=== PATIENT | male | born 1970 | race African-American/Black ===

== ENCOUNTER 2018-06-17 02:35 | Emergency (ER) | payer OTHER ==
[~2018-06-17] VITALS: Ht 167.6 cm; Wt 79.4 kg
[~2018-06-17 02:35] MED LIST: CEPH500 PO; CODACE30 PO; DIAZ5 PO; HYDACE5 PO; MECL25 PO; NAPR550 PO; PROM25 PO; SULTRIDS PO
== END 2018-06-17 03:20 | disposition home or self-care (01) ==
LOC: ER 02:35
DX: S61.011D Laceration without foreign body of right thumb without damage to nail, subsequent encounter (principal); W26.8XXD Contact with other sharp object(s), not elsewhere classified, subsequent encounter; F17.200 Nicotine dependence, unspecified, uncomplicated
CPT/HCPCS: 99282

== ENCOUNTER → 2018-10-18 | Outpatient (CLI) | payer SELFPAY | END | disposition home or self-care (01) | LOC: LAB SHORT 19:40 → LAB EV 19:40 | DX: L02.91 Cutaneous abscess, unspecified (principal) | CPT/HCPCS: 87070; 87075; 87077; 87147; 87186; 87205 ==

== ENCOUNTER 2019-09-30 07:57 | Emergency (ER) | payer OTHER ==
[~2019-09-30] VITALS: Ht 167.6 cm; Wt 86.2 kg
[2019-09-30] MEDS ORDERED: Lisinopril2.5 MG (08:14)
[2019-09-30 08:16] LABS: BASOPHILS ABSOLUTE AUTO 0.03 K/mm3 (0.00-0.23); BASOPHILS PERCENT AUTO 0 % (0-2); EOSINOPHILS ABSOLUTE AUTO 0.02 K/mm3 (0.00-0.68); EOSINOPHILS PERCENT AUTO 0 % (0-6); Hematocrit 46.8 % (37.0-53.0); IMMATURE GRAN ABSOLUTE AUTO 0.05 K/mm3 (0.00-0.10); IMMATURE GRAN PERCENT AUTO 1 % (0-1); LYMPHOCYTES PERCENT AUTO 19 % (21-46); MONOCYTES PERCENT AUTO 9 % (4-13); Mean Corpuscular HGB 31.1 pg (26.0-34.0); Mean Corpuscular HGB Conc 32.1 g/dL (31.5-36.5); Mean Corpuscular Volume 97 fL (80-100); Mean Platelet Volume 8.8 fL (9.1-12.4); NEUTROPHILS ABSOLUTE AUTO 5.85 K/mm3 (1.96-9.15); NEUTROPHILS PERCENT AUTO 71 % (41-73); Platelet Count 441 K/mm3 (150-400); RDW Coefficient Variation 12.8 % (11.7-14.2); RDW Standard Deviation 45.7 fL (35.1-46.3); Red Blood Cell Count 4.82 M/mm3 (4.30-5.90); White Blood Cell Count 8.25 K/mm3 (4.00-11.30)
[2019-09-30 08:39] LABS: Alanine Aminotransfer (ALT/SGP 30 U/L (12-78); Albumin, Blood 3.8 g/dL (3.4-5.0); Albumin/Globulin Ratio 0.9 (0.8-1.8); Alk Phos 112 U/L (50-136); Anion Gap 6 mmol/L (6-16); Aspartate Aminotrans (AST/SGOT 11 U/L (12-37); Bilirubin, Total 0.9 mg/dL (0.1-1.0); Blood Urea Nitrogen 24 mg/dL (8-24); Bun/Creatinine Ratio 18.2 (12.0-20.0); CO2, Blood 29 mmol/L (21-32); Chloride, Blood 104 mmol/L (98-108); Creatinine, Blood 1.32 mg/dL (0.60-1.20); Globulin, Blood 4.3 g/dL (2.2-4.0); Glomerular Filtration Rate >60 (60-); Glucose, Blood 141 mg/dL (70-99); Potassium, Blood 3.6 mmol/L (3.5-5.5); Sodium, Blood 139 mmol/L (136-145); Total Protein, Blood 8.1 g/dL (6.4-8.2)
[2019-09-30] MEDS ORDERED: Ranitidine HCl150 M1 PO (10:48)
[2019-09-30] MEDS ORDERED: IBUP400 PO (10:48)
[2019-09-30] MEDS ORDERED: ONDA4ODT SL (10:48)
== END 2019-09-30 11:27 | disposition home or self-care (01) ==
LOC: ER 07:57
PROVIDERS: Emergency Medicine
DX: R10.13 Epigastric pain (principal); R11.2 Nausea with vomiting, unspecified; I10 Essential (primary) hypertension; F17.210 Nicotine dependence, cigarettes, uncomplicated; Z79.899 Other long term (current) drug therapy
CPT/HCPCS: 80053; 83690; 84484; 85025; 93005; 93010; 96361; 96374; 96375; 99284-25; C9113; J1200; J2765; J7120

== ENCOUNTER 2020-09-13 17:43 | Emergency (ER) | payer OTHER ==
[~2020-09-13] VITALS: Ht 170.2 cm; Wt 86.3 kg
[~2020-09-13 17:43] MED LIST changes: +IBUP400 PO; +Lisinopril2.5 MG; +ONDA4ODT SL; +Ranitidine HCl150 M1 PO
[2020-09-13 18:27] LABS: BASOPHILS ABSOLUTE AUTO 0.02 K/mm3 (0.00-0.23); BASOPHILS PERCENT AUTO 0 % (0-2); EOSINOPHILS ABSOLUTE AUTO 0.04 K/mm3 (0.00-0.68); EOSINOPHILS PERCENT AUTO 1 % (0-6); Hematocrit 42.1 % (37.0-53.0); Hemoglobin 13.7 g/dL (13.5-17.5); IMMATURE GRAN ABSOLUTE AUTO 0.03 K/mm3 (0.00-0.10); IMMATURE GRAN PERCENT AUTO 0 % (0-1); LYMPHOCYTES ABSOLUTE AUTO 1.88 K/mm3 (0.84-5.20); LYMPHOCYTES PERCENT AUTO 25 % (21-46); MONOCYTES ABSOLUTE AUTO 0.57 K/mm3 (0.16-1.47); MONOCYTES PERCENT AUTO 8 % (4-13); Mean Corpuscular HGB 30.7 pg (26.0-34.0); Mean Corpuscular HGB Conc 32.5 g/dL (31.5-36.5); Mean Corpuscular Volume 94 fL (80-100); Mean Platelet Volume 9.2 fL (9.1-12.4); NEUTROPHILS ABSOLUTE AUTO 4.94 K/mm3 (1.96-9.15); NEUTROPHILS PERCENT AUTO 66 % (41-73); Platelet Count 302 K/mm3 (150-400); RDW Coefficient Variation 12.3 % (11.7-14.2); Red Blood Cell Count 4.46 M/mm3 (4.30-5.90); White Blood Cell Count 7.48 K/mm3 (4.00-11.30)
[2020-09-13 18:54] LABS: Alanine Aminotransfer (ALT/SGP 34 U/L (12-78); Albumin, Blood 3.5 g/dL (3.4-5.0); Albumin/Globulin Ratio 0.9 (0.8-1.8); Alk Phos 92 U/L (50-136); Anion Gap 6 mmol/L (6-16); Aspartate Aminotrans (AST/SGOT 22 U/L (12-37); Bilirubin, Total 0.7 mg/dL (0.1-1.0); Blood Urea Nitrogen 16 mg/dL (8-24); CO2, Blood 27 mmol/L (21-32); Chloride, Blood 108 mmol/L (98-108); Creatinine, Blood 1.14 mg/dL (0.60-1.20); Globulin, Blood 3.8 g/dL (2.2-4.0); Glomerular Filtration Rate >60 (60-); Glucose, Blood 115 mg/dL (70-99); Potassium, Blood 3.6 mmol/L (3.5-5.5); Sodium, Blood 141 mmol/L (136-145); Total Protein, Blood 7.3 g/dL (6.4-8.2)
[2020-09-13] MEDS ORDERED: MOTION RELIEF25 MG PO (21:10)
== END 2020-09-13 21:31 | disposition home or self-care (01) ==
LOC: ER 17:43
PROVIDERS: Physician Assistant
DX: R42 Dizziness and giddiness (principal); I10 Essential (primary) hypertension; F17.210 Nicotine dependence, cigarettes, uncomplicated
CPT/HCPCS: 36415; 71046; 80053; 85025; 93005; 93010; 99284-25; A9270

== ENCOUNTER 2023-04-11 13:32 | Inpatient (IN) | payer OTHER ==
[~2023-04-11] VITALS: Ht 167.6 cm; Wt 84.0 kg
[~2023-04-11 13:32] MED LIST changes: +ALPR.5 PO; +MOTION RELIEF25 MG PO
[2023-04-11 14:12] LABS: BASOPHILS ABSOLUTE AUTO 0.02 K/mm3 (0.00-0.23); BASOPHILS PERCENT AUTO 0 % (0-2); EOSINOPHILS ABSOLUTE AUTO 0.05 K/mm3 (0.00-0.68); EOSINOPHILS PERCENT AUTO 1 % (0-6); Hematocrit 43.9 % (37.0-53.0); Hemoglobin 14.4 g/dL (13.5-17.5); IMMATURE GRAN ABSOLUTE AUTO 0.02 K/mm3 (0.00-0.10); IMMATURE GRAN PERCENT AUTO 0 % (0-1); LYMPHOCYTES ABSOLUTE AUTO 2.07 K/mm3 (0.84-5.20); LYMPHOCYTES PERCENT AUTO 28 % (21-46); MONOCYTES ABSOLUTE AUTO 0.65 K/mm3 (0.16-1.47); MONOCYTES PERCENT AUTO 9 % (4-13); Mean Corpuscular HGB 31.5 pg (26.0-34.0); Mean Corpuscular HGB Conc 32.8 g/dL (31.5-36.5); Mean Corpuscular Volume 96 fL (80-100); Mean Platelet Volume 9.1 fL (9.1-12.4); NEUTROPHILS ABSOLUTE AUTO 4.68 K/mm3 (1.96-9.15); NEUTROPHILS PERCENT AUTO 62 % (41-73); Platelet Count 329 K/mm3 (150-400); RDW Coefficient Variation 12.7 % (11.7-14.2); RDW Standard Deviation 44.9 fL (35.1-46.3); Red Blood Cell Count 4.57 M/mm3 (4.30-5.90); White Blood Cell Count 7.49 K/mm3 (4.00-11.30)
[2023-04-11 14:33] LABS: Albumin, Blood 3.6 g/dL (3.4-5.0); Bilirubin, Total 0.7 mg/dL (0.1-1.0); Bun/Creatinine Ratio 17.5 (12.0-20.0); Creatinine, Blood 0.92 mg/dL (0.60-1.20); Globulin, Blood 3.7 g/dL (2.2-4.0); Potassium, Blood 3.4 mmol/L (3.5-5.5); Total Protein, Blood 7.3 g/dL (6.4-8.2)
[2023-04-11 16:36] LABS: Anti-Xa UFH, PHA Monitoring <0.10 IU/mL; International Normalized Ratio 1.01; Prothrombin Time Results 10.6 Sec (9.7-11.5)
[2023-04-11 18:31] VITALS: BP 136/98
[2023-04-11 20:24] LABS: U Amphetamine Screen DETECTED; U Cannabinoids Screen DETECTED; U Methamphetamine Screen DETECTED
[2023-04-11 20:25] LABS: U Barbituate Screen Not Detected; U Benzodiazapine Screen Not Detected; U Buprenorphine Screen Not Detected; U Cocaine Screen Not Detected; U Methadone Screen Not Detected; U Opiates Screen Not Detected; U Oxycodone Screen Not Detected; U Phencyclidine Screen Not Detected
[2023-04-11 20:49] VITALS: BP 132/92
[2023-04-12] VITALS (12 sets, daily range): BP systolic 135–166; BP diastolic 89–120
--- NOTE | 2023-04-12 04:36 | NUR ---
SHIFT SUMMARY THIS RN ASSUMED CARE OF PATIENT AT 1900. PT A&O X4. ABLE TO MAKE NEEDS KNOWN. DENIED CHEST PAIN/PRESSURE T/O THIS SHIFT. SR WITH HR 70-90'S. ON RA WITH SPO2 >92%. DENIES DYSPNEA WITH EXERTION. AFEBRILE. BP STABLE, SBP 130-140'S. PT AMBULATING WITH SBA TO BATHROOM WITH ASSISTANCE NEEDED WITH IV POLE ONLY. COOPERATIVE WITH CARE. HEP GTT INFUSING PER EMAR. PT HAS BEEN NPO SINCE MIDNIGHT. BED IN LOWEST POSITION AND CALL LIGHT WITHIN REACH. THIS RN WILL REPORT TO ONCOMING DAYSHIFT RN.
[2023-04-12 05:11] LABS: BASOPHILS ABSOLUTE AUTO 0.04 K/mm3 (0.00-0.23); BASOPHILS PERCENT AUTO 1 % (0-2); EOSINOPHILS ABSOLUTE AUTO 0.06 K/mm3 (0.00-0.68); EOSINOPHILS PERCENT AUTO 1 % (0-6); Hematocrit 43.6 % (37.0-53.0); Hemoglobin 14.2 g/dL (13.5-17.5); IMMATURE GRAN ABSOLUTE AUTO 0.02 K/mm3 (0.00-0.10); IMMATURE GRAN PERCENT AUTO 0 % (0-1); LYMPHOCYTES ABSOLUTE AUTO 2.65 K/mm3 (0.84-5.20); LYMPHOCYTES PERCENT AUTO 38 % (21-46); MONOCYTES ABSOLUTE AUTO 0.59 K/mm3 (0.16-1.47); MONOCYTES PERCENT AUTO 9 % (4-13); Mean Corpuscular HGB 31.1 pg (26.0-34.0); Mean Corpuscular HGB Conc 32.6 g/dL (31.5-36.5); Mean Corpuscular Volume 95 fL (80-100); Mean Platelet Volume 9.2 fL (9.1-12.4); NEUTROPHILS ABSOLUTE AUTO 3.57 K/mm3 (1.96-9.15); NEUTROPHILS PERCENT AUTO 52 % (41-73); Platelet Count 292 K/mm3 (150-400); RDW Coefficient Variation 12.6 % (11.7-14.2); RDW Standard Deviation 44.3 fL (35.1-46.3); Red Blood Cell Count 4.57 M/mm3 (4.30-5.90); White Blood Cell Count 6.93 K/mm3 (4.00-11.30)
[2023-04-12 05:41] LABS: Anion Gap 6 mmol/L (6-16); Blood Urea Nitrogen 14 mg/dL (8-24); Bun/Creatinine Ratio 17.5 (12.0-20.0); CHOL/HDL RATIO 3.8; CO2, Blood 23 mmol/L (21-32); Calcium, Blood 8.9 mg/dL (8.5-10.1); Chloride, Blood 111 mmol/L (98-108); Cholesterol 182 mg/dL (50-200); Glomerular Filtration Rate 105 (60-); Glucose, Blood 113 mg/dL (70-99); HDL Cholesterol 48 mg/dL (>39); LDL/HDL RATIO 2.4; Low Density Lipoprotein Chol 117 mg/dL (0-110); Potassium, Blood 3.8 mmol/L (3.5-5.5); Sodium, Blood 140 mmol/L (136-145); Triglycerides 83 mg/dL (30-160); Very Low Density Lipoprot Chol 16 mg/dL (6-32)
--- NOTE | 2023-04-12 18:07 | NUR ---
ASSUMED CARE OF PT AT 0700 THIS AM. PT TO PUMPING SUPERVISOR APROX 0730 AND RETURN APROX 0840. RECEIVED ONE STENT TO THE CIRC, R RADIAL ACCESS WITH TR BAND IN PLACE UPON ARRIVAL TO ROOM. HEPARIN GTT DISCONTINUED POST PROCEDURE. PER REPORT PT TOLERATED WELL. PT IS A&OX4, DENIES PAIN OR SOB ON ARRIVAL. TR BAND RECOVERED PER MD ORDERS WITHOUT ANY COMPLICATIONS NOTED. PT INSTRUCTED ON R WIRST LIMITED ROM, ARM BOARD IN PLACE. PT VERBALIZES UNDERSTANDING. PT HAS CONTINUED TO DENY CHEST PAIN OR PRESSURE T/O THE DAY. TR BAND SITE IS FULLY RECOVERED WITHOUT ANY BLEEDING, SWELLING OR HEMATOMA NOTED. PT HAS BEEN COOPERATIVE, ABLE TO MAKE NEEDS KNOWN, USES CALL LIGHT APPROPRIATELY. BED IN LOWEST POSITION. PT IS INDEPENDENT IN ROOM. CALL LIGHT IN REACH. WILL CONTINUE TO MONITOR/TREAT AND GIVE REPORT TO NOC SHIFT RN AT END OF SHIFT.
[2023-04-13 03:58] VITALS: BP 144/107
[2023-04-13 04:32] LABS: Calcium, Blood 8.6 mg/dL (8.5-10.1); Creatinine, Blood 0.94 mg/dL (0.60-1.20); Magnesium, Blood 2.3 mg/dL (1.6-2.4); Potassium, Blood 3.8 mmol/L (3.5-5.5)
--- NOTE | 2023-04-13 04:52 | NUR ---
SHIFT SUMMARY NO ACUTE CHANGES OVERNIGHT. PT DENIES CHEST PAIN/PRESSURE. RT RADIAL ANGIO SITE DRESSING C/D/I. NO BLEEDING, DISCOLORATION, HEMATOMA NOTED. ARMBOARD IN PLACE. BP STABLE. SR WITH HR 80'S. ON RA WITH SPO2 >92%. AFEBRILE. INDEPENDENT WITH ADL'S. NEURO INTACT. BED IN LOWEST POSITION AND CALL LIGHT WITHIN REACH. THIS RN WILL REPORT TO ONCOMING DAYSHIFT RN.
[2023-04-13 07:25] VITALS: BP 152/97
--- NOTE | 2023-04-13 07:25 | NUR ---
PT A/O. DENIES ANY CP OR EVENTS OVERNIGHT. HAS REMAINED IN NSR T/O NIGHT RIGHT RADIAL SITE WNL WITH ARMBOARD IN PLACE. PROBABLE DC HOME TODAY. PT DID STATE THAT HE IS CURRENLTY HOMELESS BUT STAYING AT THE [place] THAT [place] HAVE E[place]RICITY. WILL INVOLVE CARE MANAGEMENT WITH DISCHARGE PLAN.
[2023-04-13] MEDS ORDERED: ASPI81CH PO ×2 (09:31→09:38)
[2023-04-13] MEDS ORDERED: ATOR80 PO (09:38)
[2023-04-13] MEDS ORDERED: Carvedilol12.5 MG PO (09:39)
[2023-04-13] MEDS ORDERED: NITR.4SL SL (09:39)
[2023-04-13] MEDS ORDERED: CLOP75 PO (09:39)
--- NOTE | 2023-04-13 10:57 | NUR ---
DC ORDERS HAVE BEEN WRITTEN BY DR. MAYO. DR. SUH HAS CLEARED PATIENT FOR DISCHARGE. CARE MANAGEMENT STATED PATIENT ABLE TO DC TO [facility]. PATIENT WANTED A HOTEL STAY FOR A COUPLE NIGHTS BUT UNABLE TO APPROVE THIS REQUEST. RX SENT TO PHARMACY OF CHOICE. CARDIOLOGY OFFICE STATES THEY WILL CALL PATIENT TO SCHEDULE F/U APPT. PT DOES NOT HAVE PRIMARY CARE, HIS INSURANCE PROVIDER WAS CONTACTED PER CM AND THEY WILL CALL TO SCHEDULE. A LIST OF PROVIDERS ALSO GIVEN TO PATIENT.
--- NOTE | 2023-04-13 11:13 | NUR ---
DC INSTRUCTIONS ALL INSTRUCTIONS REVIEWED WITH PATIENT. ANSWERED ALL QUESTIONS, NO OTHER CONCERNS AT THIS TIME. IV X2 DC'D, TELE DC'D, PATIENT WAITING FOR RIDE.
== END 2023-04-13 11:17 | disposition home or self-care (01) | DRG 322 ==
LOC: ER 13:32 → PCU 16:31
PROVIDERS: Emergency Medicine; Student in an Organized Health Care Education/Training Program; ADMIT Family Medicine
PROC: 027034Z Dilation of Coronary Artery, One Artery with Drug-eluting Intraluminal Device, Percutaneous Approach (ICD-10-PCS; principal; 2023-04-12)
PROC: B2111ZZ Fluoroscopy of Multiple Coronary Arteries using Low Osmolar Contrast (ICD-10-PCS; 2023-04-12)
DX: I21.4 Non-ST elevation (NSTEMI) myocardial infarction (principal); I50.30 Unspecified diastolic (congestive) heart failure; I25.10 Atherosclerotic heart disease of native coronary artery without angina pectoris; F17.210 Nicotine dependence, cigarettes, uncomplicated; E87.6 Hypokalemia; I11.0 Hypertensive heart disease with heart failure; Z71.6 Tobacco abuse counseling
CPT/HCPCS: 36415; 71046; 76937; 80048; 80053; 80061; 83735; 84484; 85025; 85347; 85520; 85610; 85730; 93005; 93010; 93306; 93454; 96365; 96375; 96376; 99152; 99153; 99285-25; A9270; C1725; C1769; C1874; C1887; C1894; C9600; J0360; J1644; J2250; J3010; J7030; J7050; Q9967

== ENCOUNTER 2023-04-16 00:44 | Emergency (ER) | payer OTHER ==
[~2023-04-16] VITALS: Ht 175.3 cm; Wt 77.1 kg
[~2023-04-16 00:44] MED LIST changes: +ASPI81CH PO; +ATOR80 PO; +CLOP75 PO; +Carvedilol12.5 MG PO; +NITR.4SL SL
[2023-04-16 01:03] VITALS: BP 155/94
== END 2023-04-16 01:48 | disposition home or self-care (01) ==
LOC: ER 00:44
DX: F15.20 Other stimulant dependence, uncomplicated (principal); F12.20 Cannabis dependence, uncomplicated; F17.210 Nicotine dependence, cigarettes, uncomplicated; I25.2 Old myocardial infarction; Z59.00 Homelessness unspecified; Z79.82 Long term (current) use of aspirin; Z79.02 Long term (current) use of antithrombotics/antiplatelets; Z79.899 Other long term (current) drug therapy
CPT/HCPCS: 99282

== ENCOUNTER 2024-08-11 16:25 | Emergency (ER) | payer OTHER ==
[~2024-08-11] VITALS: Ht 167.6 cm; Wt 81.7 kg
[2024-08-11 16:28] VITALS: BP 159/101
[2024-08-11 16:55] LABS: BASOPHILS ABSOLUTE AUTO 0.03 K/mm3 (0.00-0.23); BASOPHILS PERCENT AUTO 0 % (0-2); EOSINOPHILS ABSOLUTE AUTO 0.04 K/mm3 (0.00-0.68); EOSINOPHILS PERCENT AUTO 0 % (0-6); Hematocrit 44.2 % (37.0-53.0); Hemoglobin 14.5 g/dL (13.5-17.5); IMMATURE GRAN ABSOLUTE AUTO 0.05 K/mm3 (0.00-0.10); IMMATURE GRAN PERCENT AUTO 0 % (0-1); LYMPHOCYTES ABSOLUTE AUTO 0.72 K/mm3 (0.84-5.20); LYMPHOCYTES PERCENT AUTO 6 % (21-46); MONOCYTES ABSOLUTE AUTO 0.85 K/mm3 (0.16-1.47); MONOCYTES PERCENT AUTO 7 % (4-13); Mean Corpuscular HGB 31.5 pg (26.0-34.0); Mean Corpuscular HGB Conc 32.8 g/dL (31.5-36.5); Mean Corpuscular Volume 96 fL (80-100); Mean Platelet Volume 8.6 fL (9.1-12.4); NEUTROPHILS PERCENT AUTO 87 % (41-73); Platelet Count 343 K/mm3 (150-400); RDW Coefficient Variation 12.9 % (11.7-14.2); RDW Standard Deviation 45.7 fL (35.1-46.3); Red Blood Cell Count 4.61 M/mm3 (4.30-5.90); White Blood Cell Count 12.49 K/mm3 (4.00-11.30)
[2024-08-11 17:41] LABS: Albumin, Blood 3.6 g/dL (3.4-5.0); Albumin/Globulin Ratio 0.9 (0.8-1.8); Bilirubin, Total 1.1 mg/dL (0.1-1.0); Bun/Creatinine Ratio 25.2 (12.0-20.0); Calcium, Blood 9.3 mg/dL (8.5-10.1); Creatinine, Blood 0.76 mg/dL (0.60-1.20); Potassium, Blood 4.3 mmol/L (3.5-5.5); Total Protein, Blood 7.6 g/dL (6.4-8.2)
== END 2024-08-11 18:49 | disposition home or self-care (01) ==
LOC: ER 16:25
PROVIDERS: Emergency Medicine
DX: R11.2 Nausea with vomiting, unspecified (principal); I25.2 Old myocardial infarction; F17.210 Nicotine dependence, cigarettes, uncomplicated; Z79.82 Long term (current) use of aspirin; Z79.899 Other long term (current) drug therapy
CPT/HCPCS: 71046; 80053; 84484; 85025; 93005; 93010; 99284-25

== ENCOUNTER 2025-02-28 20:26 | Inpatient (IN) | payer OTHER ==
[~2025-02-28] VITALS: Ht 167.6 cm; Wt 77.0 kg
[~2025-02-28 20:26] MED LIST changes: +CARV25 PO; -Carvedilol12.5 MG PO; +Enoxaparin 40 MG/0.4 ML SYR SC SCH; +Heparin Sodium,Porcine 5,000 UNIT/0.5 ML SDV SC ONE
[2025-02-28] MEDS ORDERED: Heparin Sodium 5000 Units/ML 1ML MDV IV ONE (20:30)
[2025-02-28] MEDS ORDERED: Morphine Sulfate 4 MG/1 ML Injection IV PRN (20:35)
[2025-02-28 20:37] LABS: Calcium, Ionized (POC) 1.15 mmol/L (1.10-1.46); Chloride (POC) 97 mmol/L (98-108); Creatinine (POC) 1.4 mg/dL (0.8-1.3); Glucose (ISTAT POC) 202 mg/dL (70-99); Hematocrit (POC) 45.0 % (41.0-53.0); Hemoglobin (POC) 15.3 g/dL (13.5-17.5); Potassium (POC) 3.0 mmol/L (3.5-5.5); Sodium (POC) 139 mmol/L (135-148); Total CO2 (POC) 28 mmol/L (21-32)
[2025-02-28 20:42] LABS: BASOPHILS ABSOLUTE AUTO 0.03 K/mm3 (0.00-0.23); BASOPHILS PERCENT AUTO 0 % (0-2); EOSINOPHILS ABSOLUTE AUTO 0.03 K/mm3 (0.00-0.68); EOSINOPHILS PERCENT AUTO 0 % (0-6); Hematocrit 42.5 % (37.0-53.0); Hemoglobin 13.8 g/dL (13.5-17.5); IMMATURE GRAN ABSOLUTE AUTO 0.02 K/mm3 (0.00-0.10); IMMATURE GRAN PERCENT AUTO 0 % (0-1); LYMPHOCYTES ABSOLUTE AUTO 1.88 K/mm3 (0.84-5.20); LYMPHOCYTES PERCENT AUTO 28 % (21-46); MONOCYTES ABSOLUTE AUTO 0.55 K/mm3 (0.16-1.47); MONOCYTES PERCENT AUTO 8 % (4-13); Mean Corpuscular HGB Conc 32.5 g/dL (31.5-36.5); Mean Corpuscular Volume 94 fL (80-100); NEUTROPHILS ABSOLUTE AUTO 4.24 K/mm3 (1.96-9.15); NEUTROPHILS PERCENT AUTO 63 % (41-73); NRBC ABSOLUTE 0.00 K/mm3 (0.00-0.02); NRBC Auto 0.0 /100 WBC (0.0-0.2); Platelet Count 298 K/mm3 (150-400); RDW Coefficient Variation 13.0 % (11.7-14.2); RDW Standard Deviation 44.9 fL (35.1-46.3)
[2025-02-28] MEDS ORDERED: NiCARdipine HCL 1,000 MCG/5 ML SYR ONE (20:48)
[2025-02-28] MEDS ORDERED: Heparin Sodium 1000 Units/ML 10ML MDV ONE (20:48)
[2025-02-28] MEDS ORDERED: NS 1,000 ML IV ONE ×2 (20:48→20:53)
[2025-02-28] MEDS ORDERED: NS 250 ML IV ONE (20:48)
[2025-02-28] MEDS ORDERED: Midazolam HCl 1MG / ML 2ML Vial ONE ×2 (20:53→21:25)
[2025-02-28] MEDS ORDERED: FentaNYL Citrate 50 MCG/ML 2 ML Injection ONE ×2 (20:53→21:25)
[2025-02-28 21:00] LABS: Prothrombin Time Results 11.2 Sec (9.7-11.5)
[2025-02-28 21:05] LABS: Alanine Aminotransfer (ALT/SGP 21 U/L (12-78); Albumin, Blood 3.8 g/dL (3.4-5.0); Albumin/Globulin Ratio 1.0 (0.8-1.8); Anion Gap 11 mmol/L (3-11); Aspartate Aminotrans (AST/SGOT 17 U/L (12-37); Bilirubin, Total 1.0 mg/dL (0.1-1.0); Blood Urea Nitrogen 14 mg/dL (8-24); CHOL/HDL RATIO 3.9; CO2, Blood 29 mmol/L (21-32); Calcium, Blood 9.3 mg/dL (8.5-10.1); Chloride, Blood 99 mmol/L (98-108); Cholesterol 201 mg/dL (50-200); Creatinine, Blood 1.17 mg/dL (0.60-1.20); Globulin, Blood 3.7 g/dL (2.2-4.0); Glucose, Blood 212 mg/dL (70-99); HDL Cholesterol 52 mg/dL (>39); LDL/HDL RATIO 2.6; Low Density Lipoprotein Chol 137 mg/dL (0-110); Magnesium, Blood 2.2 mg/dL (1.6-2.4); Potassium, Blood 2.9 mmol/L (3.5-5.5); Sodium, Blood 136 mmol/L (136-145); Total Protein, Blood 7.5 g/dL (6.4-8.2); Triglycerides 58 mg/dL (30-160); Very Low Density Lipoprot Chol 11 mg/dL (6-32)
[2025-02-28] MEDS ORDERED: DiphenhydrAMINE HCl 50 MG/ML 1ML Vial ONE (21:19)
[2025-02-28] MEDS ORDERED: Labetalol HCL 5 MG/ML 4ML Injection (Single Dose) ONE (21:26)
[2025-02-28] MEDS ORDERED: Phenylephrine HCl 100 MCG/ML-NS 10MLSYR (1MG/10ML) ONE (21:43)
[2025-02-28 23:00] VITALS: BP 162/134; BP 185/143
[2025-02-28] MEDS ORDERED: NS 1,000 ML IV SCH (23:00)
--- NOTE | 2025-02-28 23:00 | NUR ---
ADMISSION NOTE AT 2237 PT ARRIVED FROM [facility] ON OUR ICU BED, SEDATED FROM STENTING PROCEDURE DURING WHICH HE RECEIVED 2MG OF VERSED, 100MCG OF FENTANYL AND 25MG OF DIPHENHYDRAMINE. PT IS AFEBRILE AND IN SINUS RHYTHM. BP IS ELEVATED AT 158 SBP. WILL MONITOR. PT ON RA WITH SATURATIONS > 90%. PT DESATURATES OCCASIONALLY INTO MID TO HIGH 80'S WITH APPARENT SLEEP APNEA. WILL MONITOR AND INTERVENE IF NEEDED. LUNGS CLEAR. RRR. NORMOACTIVE BOWEL SOUNDS. PT HELPED WITH URINAL DURING ASSESSMENT. 300ML OUTPUT. TRENDING TROPONINS AND ECG AND ECHO SCHEDULED FOR MORNING. RIGHT GROIN ACCESS SITE IS CLOSED WITH ANGIOSEAL. AREA IS CLEAN, DRY, INTACT AND SOFT. RIGHT RADIAL ACCESS SITE WITH TR BAND IN PLACE WITH 12ML OF AIR INFLATION. AREA IS C/D/I/SOFT. WILL REMOVE AIR SLOWLY. WILL INIATE PLAN OF CARE, INCLUDING LOVENOX INJECTION, NS AT 200ML/HR X 2 BAGS AND 40MEQ OF KCL FOR A K OF 3.0 ON ARRIVAL TO ED.
[2025-02-28 23:15] VITALS: BP 165/126
[2025-02-28 23:30] VITALS: BP 162/134
[2025-02-28 23:45] VITALS: BP 176/116
[2025-02-28] MEDS ORDERED: FLU VACC TS2025-26(6MOS UP)/PF 45 MCG/0.5 ML SYRINGE IM SCH (23:45)
[2025-02-28] MEDS ORDERED: Ondansetron HCl 2 MG / ML 2ML Vial IV PRN (23:45)
[2025-03-01] VITALS (43 sets, daily range): BP systolic 106–169; BP diastolic 79–136
[2025-03-01] MEDS ORDERED: Enoxaparin 40 MG/0.4 ML SYR SC SCH (00:05)
--- NOTE | 2025-03-01 03:04 | NUR ---
TR BAND INFO TR BAND APPLIED AT 2232 IN SUPERINTENDENT METERS. WHAT FOLLOWS IS THE TIMING OF REMOVAL OF THE 12ML OF AIR WITHIN 2340 2ML 0007 2ML 0020 2ML 0120 3ML 0145 3ML AT ALL STAGES, AREA C/D/I/SOFT TR BAND REMOVED AT 0230 AND TEGADERM APPLIED
[2025-03-01] MEDS ORDERED: HydrALAZINE HCl 20 MG / ML 1ML Vial IV PRN (03:30)
[2025-03-01 03:34] LABS: BASOPHILS ABSOLUTE AUTO 0.01 K/mm3 (0.00-0.23); BASOPHILS PERCENT AUTO 0 % (0-2); EOSINOPHILS ABSOLUTE AUTO 0.01 K/mm3 (0.00-0.68); EOSINOPHILS PERCENT AUTO 0 % (0-6); Hematocrit 39.0 % (37.0-53.0); Hemoglobin 12.7 g/dL (13.5-17.5); IMMATURE GRAN ABSOLUTE AUTO 0.02 K/mm3 (0.00-0.10); IMMATURE GRAN PERCENT AUTO 0 % (0-1); LYMPHOCYTES ABSOLUTE AUTO 1.37 K/mm3 (0.84-5.20); LYMPHOCYTES PERCENT AUTO 19 % (21-46); MONOCYTES ABSOLUTE AUTO 0.55 K/mm3 (0.16-1.47); MONOCYTES PERCENT AUTO 7 % (4-13); Mean Corpuscular HGB Conc 32.6 g/dL (31.5-36.5); Mean Corpuscular Volume 94 fL (80-100); NEUTROPHILS ABSOLUTE AUTO 5.46 K/mm3 (1.96-9.15); NEUTROPHILS PERCENT AUTO 74 % (41-73); NRBC ABSOLUTE 0.00 K/mm3 (0.00-0.02); NRBC Auto 0.0 /100 WBC (0.0-0.2); Platelet Count 260 K/mm3 (150-400); RDW Coefficient Variation 13.1 % (11.7-14.2); RDW Standard Deviation 45.7 fL (35.1-46.3)
[2025-03-01 03:52] LABS: Alanine Aminotransfer (ALT/SGP 21.0 U/L (12-78); Albumin, Blood 3.1 g/dL (3.4-5.0); Albumin/Globulin Ratio 1.0 (0.8-1.8); Anion Gap 9.0 mmol/L (3-11); Aspartate Aminotrans (AST/SGOT 82.0 U/L (12-37); Bilirubin, Total 1.0 mg/dL (0.1-1.0); Blood Urea Nitrogen 12.0 mg/dL (8-24); CO2, Blood 27.0 mmol/L (21-32); Calcium, Blood 8.2 mg/dL (8.5-10.1); Chloride, Blood 104.0 mmol/L (98-108); Creatinine, Blood 0.84 mg/dL (0.60-1.20); Globulin, Blood 3.2 g/dL (2.2-4.0); Glucose, Blood 104.0 mg/dL (70-99); Potassium, Blood 3.3 mmol/L (3.5-5.5); Sodium, Blood 137.0 mmol/L (136-145); Total Protein, Blood 6.3 g/dL (6.4-8.2)
--- NOTE | 2025-03-01 06:50 | NUR ---
SHIFT SUMMARY PT LYING IN BED SLEEPING, AWAKES TO VOICE AND IS ALERT AND ORIENTED TO ALL. AFEBRILE. NO PAIN. MOVES ALL EXTEMITIES WELL. RIGHT LEG AND RIGHT HAND SENSATION, TEMPERATURE AND MOVEMENT INTACT. SINUS RHYTHM RATE OF 89 AND STABLE TO ELEVATED BP. ONE DOSE OF HYDRALAZINE GIVEN DURING SHIFT. NO CHEST PAIN/PRESSURE DURING SHIFT. PT HAS HAD 5 RUNS OF V TACH 5 TO 13 BEATS LONG. SATURATION > 92% ON RA. NO SOB NO AB PAIN, N/V. NO BM DURING SHIFT. URINE OUTPUT 1.2 L. NS INFUSING AT 200ML/HR. BEDSIDE SHIFT REPORT GIVEN TO ONCOMING RN.
--- NOTE | 2025-03-01 07:25 | NUR ---
ASSUMED CARE THIS RN ASSUMED CARE OF PATIENT AT 0700 WITH PRECEPTOR HARDIK METZ. PATIENT IS RESTING WITH HIS EYES CLOSED DURING BSSR. HE IS CURRENTLY ON RA WITH SPO2 >94%. MONITOR SHOWS NSR WITH 80-90S. SYSTOLIC BP >140, MAP >120. NS 200ML/HR RUNNING THROUGH PIV. PATIENT'S RIGHT RADIAL SITE AND GROIN IS SOFT AND NONTENDER W/O VISIBLE ECCHYMOSIS. PATIENT HAS HANDHELD URINAL IN REACH. CALL LIGHT IN REACH. BED IN LOWEST POSITION.
[2025-03-01 13:22] LABS: U Amphetamine Screen DETECTED; U Cannabinoids Screen DETECTED; U Methamphetamine Screen DETECTED
[2025-03-01 13:23] LABS: U Barbiturate Screen Not Detected; U Benzodiazapine Screen Not Detected; U Buprenorphine Screen Not Detected; U Cocaine Screen Not Detected; U Methadone Screen Not Detected; U Opiates Screen DETECTED; U Oxycodone Screen Not Detected; U Phencyclidine Screen Not Detected
[2025-03-01 15:41] LABS: Ferritin, Serum 76.0 ng/mL (26-388); Total Iron Binding Capacity 274.0 ug/dL (250-450)
--- NOTE | 2025-03-01 18:09 | NUR ---
SHIFT SUMMARY PATIENT HAS BEEN A&Ox4 THIS SHIFT. HE IS COOPERATIVE, ANSWERS QUESTIONS APPROPRIATELY AND PARTICIPATES IN ALL CARE. HIS SPO2 IS >98% ON RA. HIS SYSTOLIC BP IS >140, MONITOR SHOWS NSR WITH SLIGHT ST ELEVATION POST PCI. HE HAS NOT COMPLAINED OF CHEST PAIN OR SOB THIS SHIFT. HIS RIGHT RADIAL AND GROIN ACCESS SITES HAVE BEEN C/D/I AND FREE OF HEMATOMA, OOZING OR BLEEDING. PT WAS ABLE TO AMBULATE, SHOWER, AND USE THE TOILET INDEPENDENTLY. HE HAS EATEN ALL THREE MEALS PROVIDED AND HAS A GOOD APPETITE. SCDS IN PLACE, CALL LIGHT IN REACH. BED IN LOWEST POSITION.
--- NOTE | 2025-03-01 19:13 | NUR ---
ASSUMPTION OF CARE CARE OF PT ASSUMED FOLLOWING BEDSIDE SHIFT REPORT FROM DAY RN. PT LYING INBED IN NO APPARENT DISTRESS. AFEBRILE. NO PAIN AT THIS TIME. SINUS TACH WITH STABLE BP. RA WITH SAT 100%. NO SOB. BM TODAY. NO N/V. NO URINARY COMPLAINTS. SALINE LOCKED. RIGHT GROIN ACCESS SITE AND R RADIAL SITE ARE C/D/I/SOFT. WILL REVIEW AND CONTINUE PLAN OF CARE
[2025-03-02] VITALS (23 sets, daily range): BP systolic 127–160; BP diastolic 81–120
[2025-03-02 03:33] LABS: BASOPHILS ABSOLUTE AUTO 0.02 K/mm3 (0.00-0.23); BASOPHILS PERCENT AUTO 0 % (0-2); EOSINOPHILS ABSOLUTE AUTO 0.02 K/mm3 (0.00-0.68); EOSINOPHILS PERCENT AUTO 0 % (0-6); Hematocrit 35.5 % (37.0-53.0); Hemoglobin 11.7 g/dL (13.5-17.5); IMMATURE GRAN ABSOLUTE AUTO 0.01 K/mm3 (0.00-0.10); IMMATURE GRAN PERCENT AUTO 0 % (0-1); LYMPHOCYTES ABSOLUTE AUTO 1.29 K/mm3 (0.84-5.20); LYMPHOCYTES PERCENT AUTO 22 % (21-46); MONOCYTES ABSOLUTE AUTO 0.65 K/mm3 (0.16-1.47); MONOCYTES PERCENT AUTO 11 % (4-13); Mean Corpuscular HGB Conc 33.0 g/dL (31.5-36.5); Mean Corpuscular Volume 95 fL (80-100); NEUTROPHILS ABSOLUTE AUTO 3.92 K/mm3 (1.96-9.15); NEUTROPHILS PERCENT AUTO 66 % (41-73); NRBC ABSOLUTE 0.00 K/mm3 (0.00-0.02); NRBC Auto 0.0 /100 WBC (0.0-0.2); Platelet Count 229 K/mm3 (150-400); RDW Coefficient Variation 13.4 % (11.7-14.2); RDW Standard Deviation 46.9 fL (35.1-46.3)
[2025-03-02 03:55] LABS: Alanine Aminotransfer (ALT/SGP 24.0 U/L (12-78); Albumin, Blood 2.7 g/dL (3.4-5.0); Albumin/Globulin Ratio 0.9 (0.8-1.8); Anion Gap 9.0 mmol/L (3-11); Aspartate Aminotrans (AST/SGOT 90.0 U/L (12-37); Bilirubin, Total 0.6 mg/dL (0.1-1.0); Blood Urea Nitrogen 13.0 mg/dL (8-24); CO2, Blood 25.0 mmol/L (21-32); Calcium, Blood 8.3 mg/dL (8.5-10.1); Chloride, Blood 109.0 mmol/L (98-108); Creatinine, Blood 0.79 mg/dL (0.60-1.20); Globulin, Blood 3.1 g/dL (2.2-4.0); Glucose, Blood 124.0 mg/dL (70-99); Potassium, Blood 3.6 mmol/L (3.5-5.5); Sodium, Blood 139.0 mmol/L (136-145); Total Protein, Blood 5.8 g/dL (6.4-8.2)
--- NOTE | 2025-03-02 06:24 | NUR ---
SHIFT SUMMARY PT LYING IN BED SLEEPING, AWAKES TO VOICE AND IS ALERT AND ORIENTED TO ALL. AFEBRILE. NO PAIN. MOVES ALL EXTEMITIES WELL. RIGHT LEG AND RIGHT HAND SENSATION, TEMPERATURE AND MOVEMENT INTACT. SINUS RHYTHM RATE OF 93 AND STABLE BP. NO HYDRALAZINE GIVEN DURING SHIFT. NO CHEST PAIN/PRESSURE DURING SHIFT. NO RUNS OF V TACH FOR 23 HRS. SATURATION > 92% ON RA. NO SOB NO AB PAIN, N/V. NO BM DURING SHIFT. URINE OUTPUT 700 ML. SALINE LOCKED. PT WILL CONTINUE TO NEED HELP WITH FOOD NEEDS AND TRANSITION BACK TO HOUSE-LESS LIFE. BEDSIDE SHIFT REPORT GIVEN TO ONCOMING RN.
--- NOTE | 2025-03-02 10:02 | NUR ---
ASSUMPTION OF CARE ASSUMED CARE OF PATIENT AT APPROX 0700. PATIENT A&OX4 AND ABLE TO MAKE NEEDS KNOWN. NO FOCAL DEFICITS. HR NORMAL SINUS/SINUS TACH IN THE 80S-100S. BP STABLE WITH MAPS >65. RIGHT RADIAL AND RIGHT GROIN SITES STABLE. PATIENT ON RA WITH SPO2 >96%. PATIENT USES URINAL IND WITH YELLOW URINE OUT. PIV TO LEFT AND RIGHT AC PATENT AND SALINE LOCKED. CALL LIGHT IN REACH. BED IN LOWEST POSITION.
--- NOTE | 2025-03-02 16:20 | NUR ---
SHIFT SUMMARY PATIENT A&OX4 AND ABLE TO MAKE NEEDS KNOWN. NO FOCAL DEFICITS. HR SINUS/SINUS TACH IN THE 80S-100S. PATIENTS BP HAS BEEN ELEVATED THROUGHOUT THE SHIFT DISPITE MEDICATION. PROVIDER AWARE. PATIENT ON RA WITH SPO2 >98%. RIGHT RADIAL AND GROIN ANGIO SITES STABLE AND WITHOUT HEMATOMAS. PATIENT UP IN ROOM IND AND USING URINAL WITH YELLOW URINE OUTPUT. NO BM THIS SHIFT. PIV TO LEFT AND RIGHT AC PATENT AND SALINE LOCKED. CALL LIGHT IN REACH. BED IN LOWEST POSITION.
--- NOTE | 2025-03-02 16:59 | NUR ---
TRANSFER NOTE PATIENT TRANSFERED TO ROOM 325. REPORT GIVEN TO HARDIK BOLES. PATIENT TAKEN BY W/C TO FLOOR WITH ALL HIS BELONGINGS.
--- NOTE | 2025-03-02 17:15 | NUR ---
TRANSFER NOTE THIS RN GOT REPORT FROM RDA. PT A&OX4. PT ADMITTED DUE TO NSTEMI. PT HAS TWO ANGIO SITES. ONE ON R WRIST AND R SIDE OF GROIN, BOTH C/D/I. PT INDEPENDENT IN ROOM. VSS. PT REPORTS SOB W EXERTION/NO CHEST PAIN/NO GEN PAIN. PT ON TELE, TELE NOTIFIED ABOUT TRANSFER. PT INDEPENDENT IN ROOM. PT ORIENTED TO UNIT/CALL LIGHT/FALL PRECAUTIONS. PT IN BED, BED IN LOWEST POSITION, CALL LIGHT IN REACH. BED LOCKED.
--- NOTE | 2025-03-02 19:21 | NUR ---
SHIFT SUMMARY NO ACUTE CHANGES OCCURED SINCE TRANSFER. (SEE TRANSFER NOTE FOR DETAILS) PT IN BED, BED IN LOWEST POSITION, LOCKED, CALL LIGHT IN REACH.
[2025-03-03] VITALS (8 sets, daily range): BP systolic 129–167; BP diastolic 105–127
[2025-03-03 05:44] LABS: BASOPHILS ABSOLUTE AUTO 0.02 K/mm3 (0.00-0.23); BASOPHILS PERCENT AUTO 0 % (0-2); EOSINOPHILS ABSOLUTE AUTO 0.04 K/mm3 (0.00-0.68); EOSINOPHILS PERCENT AUTO 1 % (0-6); Hematocrit 37.0 % (37.0-53.0); Hemoglobin 12.0 g/dL (13.5-17.5); IMMATURE GRAN ABSOLUTE AUTO 0.01 K/mm3 (0.00-0.10); IMMATURE GRAN PERCENT AUTO 0 % (0-1); LYMPHOCYTES ABSOLUTE AUTO 1.55 K/mm3 (0.84-5.20); LYMPHOCYTES PERCENT AUTO 26 % (21-46); MONOCYTES ABSOLUTE AUTO 0.50 K/mm3 (0.16-1.47); MONOCYTES PERCENT AUTO 8 % (4-13); Mean Corpuscular HGB Conc 32.4 g/dL (31.5-36.5); Mean Corpuscular Volume 95 fL (80-100); NEUTROPHILS ABSOLUTE AUTO 3.90 K/mm3 (1.96-9.15); NEUTROPHILS PERCENT AUTO 65 % (41-73); NRBC ABSOLUTE 0.00 K/mm3 (0.00-0.02); NRBC Auto 0.0 /100 WBC (0.0-0.2); Platelet Count 215 K/mm3 (150-400); RDW Coefficient Variation 13.4 % (11.7-14.2); RDW Standard Deviation 46.9 fL (35.1-46.3)
[2025-03-03 06:11] LABS: Anion Gap 10.0 mmol/L (3-11); Blood Urea Nitrogen 13.0 mg/dL (8-24); CO2, Blood 21.0 mmol/L (21-32); Calcium, Blood 8.8 mg/dL (8.5-10.1); Chloride, Blood 110.0 mmol/L (98-108); Creatinine, Blood 0.82 mg/dL (0.60-1.20); Glucose, Blood 140.0 mg/dL (70-99); Potassium, Blood 4.1 mmol/L (3.5-5.5); Sodium, Blood 137.0 mmol/L (136-145)
--- NOTE | 2025-03-03 06:29 | NUR ---
SHIFT SUMMARY A&OX4. ABLE TO MAKE NEEDS KNOWN. DENIES ANY CHEST PAIN OR DISCOMFORT. DENIES SOB AT REST BUT REPORTS INCREASED SOB WITH EXERTION. RIGHT ARM AND GROIN DRESSING REMAIN IN PLACE AND C/D/I. NO NEW CHANGES. CURRENTLY PT IS SLEEPING IN BED AT LOWEST POSITION WITH CALL LIGHT WITHIN REACH.
--- NOTE | 2025-03-03 12:51 | NUR ---
NOTE BREAK RN REPORTED DR. JAMES. "ADDING ANOTHER BP MED TO GIVE WITH NORCO." THIS RN TOOK PT BP. PT BP WAS 133/106. THIS RN CLARIFIED W DR. JAMES IF SHE STILL WANTED THIS RN TO ADMINISTER 5MG OF NORVASC DUE AT 1200. DR. JAMES REPORTED "DON'T PLAN TO ADD IMDUR, DON'T GIVE NORVASC, WAIT TO GIVE 10MG OF NORVASC TOMORROW AM."
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
[2025-03-04 03:31] VITALS: BP 147/123
--- NOTE | 2025-03-04 03:49 | NUR ---
CALLED HOSPITALIST REGARDING ELEVATED SYSTOLIC AND DIASTOLIC BPS. PT DENIES HEADACHE OR CHEST PAIN. NO NEW ORDERS AT THIS TIME. WILL CONTINUE TO MONITOR.
--- NOTE | 2025-03-04 06:31 | NUR ---
SHIFT SUMMARY: A&OX4. ABLE TO MAKE NEEDS KNOWN. ALL DRESSINGS C/D/I HE WAS ABLE TO REST THROUGH THE NIGHT. DENIES CHEST PAIN/PRESSURE. BPS REMAIN ELEVATED AND HOSPITALIST CALLED AND RECOMMENDED CONTINUE TO MONITOR. CURRENTLY PT IS SITTING UP IN BED AT LOWEST POSITION EATING A SNACK AND WATCHING TV. NO OTHER CHANGES OVER NIGHT.
[2025-03-04 07:20] VITALS: BP 167/110
[2025-03-04 09:29] VITALS: BP 140/107
[2025-03-04 11:36] VITALS: BP 151/113
[2025-03-04] MEDS ORDERED: AMLO10 PO (12:43)
[2025-03-04] MEDS ORDERED: AMOX-CLAV 875-1 EAC2 PO (12:44)
[2025-03-04] MEDS ORDERED: LOSA50 PO (12:44)
--- NOTE | 2025-03-04 13:46 | NUR ---
DISCHARGE NOTE PT DISCHARGED TO HOME, PICKED UP BY A FAMILY MEMBER. DISCHARGE INFORMATION AND EDUCATION REVIEWED, PT EDUCATED ON THE IMPORTANCE OF TAKING HIS MEDICATION AND KEEPING HIS MEDICAL APPOINTMENTS. IV'S REMOVED, TELE RETURNED. MEDICATIONS FAXED TO THE PHARMACY OF HIS CHOICE. PERSONAL BELONGINGS RETURNED.
== END 2025-03-04 13:43 | disposition home or self-care (01) | DRG 321 ==
LOC: ER 20:26 → ICUE 20:27 → ER 20:31 → ICUE 03-01 00:08 → MEDS 03-01 15:19 → ICUE 03-01 15:19 → MEDS 03-02 16:46
PROVIDERS: Emergency Medicine; Internal Medicine Interventional Cardiology; Student in an Organized Health Care Education/Training Program; ADMIT Internal Medicine
PROC: 027135Z Dilation of Coronary Artery, Two Arteries with Two Drug-eluting Intraluminal Devices, Percutaneous Approach (ICD-10-PCS; principal; 2025-02-28)
PROC: 4A023N7 Measurement of Cardiac Sampling and Pressure, Left Heart, Percutaneous Approach (ICD-10-PCS; 2025-02-28)
PROC: B2111ZZ Fluoroscopy of Multiple Coronary Arteries using Low Osmolar Contrast (ICD-10-PCS; 2025-02-28)
DX: I21.19 ST elevation (STEMI) myocardial infarction involving other coronary artery of inferior wall (principal); I63.9 Cerebral infarction, unspecified; Z59.01 Sheltered homelessness; I10 Essential (primary) hypertension; D64.9 Anemia, unspecified; I25.2 Old myocardial infarction; F12.90 Cannabis use, unspecified, uncomplicated; F15.90 Other stimulant use, unspecified, uncomplicated; I25.10 Atherosclerotic heart disease of native coronary artery without angina pectoris; E78.5 Hyperlipidemia, unspecified; E87.6 Hypokalemia; R73.9 Hyperglycemia, unspecified; Z79.82 Long term (current) use of aspirin; Z79.02 Long term (current) use of antithrombotics/antiplatelets; Z79.899 Other long term (current) drug therapy; Z95.5 Presence of coronary angioplasty implant and graft
CPT/HCPCS: 36415; 71045; 76937; 80047; 80048; 80053; 80061; 82607; 82728; 82746; 83036; 83540; 83550; 83735; 84100; 84484; 85014; 85025; 85347; 85610; 85730; 86850; 86900; 86901; 93005; 93010; 93306; 93308; 93321; 93454; 94762; 96372; 96374-59; 96375; 96375-59; 99152; 99153; 99285-25; A9270; C1725; C1760; C1769; C1874; C1887; C1894; C9606; G0378; J0360; J0461; J1200; J1644; J1650; J2250; J2270; J2371; J3010; J3246; J3480; J7030; J7050; Q9967